=== PATIENT | male | born 1990 | race Caucasian/White ===

== ENCOUNTER 2018-07-11 16:22 | Emergency (ER) | payer MEDICAID, OTHER ==
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
[2018-07-11 19:20] VITALS: BP 102/76
== END 2018-07-11 19:10 | disposition home or self-care (01) ==
DX: S62.025A Nondisplaced fracture of middle third of navicular [scaphoid] bone of left wrist, initial encounter for closed fracture (principal); S80.212A Abrasion, left knee, initial encounter; V09.29XA Pedestrian injured in traffic accident involving other motor vehicles, initial encounter; Y92.488 Other paved roadways as the place of occurrence of the external cause; Y99.9 Unspecified external cause status; Y93.9 Activity, unspecified